=== PATIENT | male | born 1970 | race Caucasian/White ===

== ENCOUNTER 2017-01-02 11:32 | Emergency (ER) | payer MEDICAID ==
--- NOTE | 2017-01-02 11:43 | Emergency Department Record ---
History of Present Illness - General Chief Complaint: Shortness of breath Stated Complaint: ZBIGNIEW/ASTHMA RELATED Time Seen by Provider: 01/02/17 11:37 Source: Patient Mode of Arrival: Ambulatory Limitations: No limitations - History of Present Illness Initial Comments: 46 yo male presents wheezing that started this morning. No chest pain. He has a history of asthma. [place] and did [place] realize his inhaler is empty. He has mild congestion and drainage. No fevers or chills. He has life long asthma. No other recent medical issues and he has been healthy. MD Complaint: "Asthma attack" -: Hour(s) Severity: Moderate Consistency: Constant Improves With: Nothing Worsens With: Nothing Known History Of: Asthma Context: Allergen exposure Associated Symptoms: Denies other symptoms Treatments Prior to Arrival: None (empty inhaler at home) - Related Data Home Oxygen Therapy: No Previous Rx's Medication Instructions Recorded Albuterol Sulfate [Proair Hfa] 1 - 2 puff IH .EVERY 4-6 HOURS PRN 01/02/17 #1 inhaler Beclomethasone Dipropionate [Qvar 8.7 gm IH BID #1 aer.w.adap 01/02/17 40Mcg/100 Actuat Inhaler] Prednisone [Prednisone 20Mg] 20 mg PO BID #10 tab 01/02/17 Allergies Allergy/AdvReac Type Severity Reaction Status Date / Time No Known Drug Allergies Allergy Verified 01/02/17 11:43 Review of Systems Constitutional: Denies: Chills, Fever, Malaise, Weakness Eyes: Denies: Eye discharge, Eye pain, Photophobia ENT: Reports: Congestion. Denies: Ear pain, Epistaxis, Throat pain Respiratory: Reports: Cough, Dyspnea, Wheezes. Denies: Hemoptysis, Stridor Cardiovascular: Denies: Chest pain, Palpitations, Syncope Endocrine: Denies: Fatigue, Polydipsia, Polyuria Gastrointestinal: Denies: Abdominal pain, Diarrhea, Nausea, Vomiting Genitourinary: Denies: Hematuria, Urgency Musculoskeletal: Denies: Arthralgia, Back pain, Joint swelling, Myalgia Skin: Denies: Bruising, Change in color, Rash Neurological: Denies: Headache, Numbness, Weakness Psychiatric: Denies: Anxiety Hematological/Lymphatic: Denies: Easy bleeding, Easy bruising, Swollen glands Physical Exam - General General Appearance: Alert, Oriented x3, Cooperative, No acute distress, Other ( Calm, no conversational dyspnea) Limitations: No limitations - Head Head exam: Normal inspection - Eye Eye exam: Normal appearance, PERRL - ENT ENT exam: Normal exam Ear exam: Normal external inspection Nasal Exam: Normal inspection Mouth exam: Normal external inspection - Neck Neck exam: Normal inspection, Full ROM. negative: Tenderness - Respiratory Respiratory exam: Decreased breath sounds, Prolonged expiratory (mild), Wheezes. negative: Normal lung sounds bilaterally, Accessory muscle use - Cardiovascular Cardiovascular Exam: Regular rate, Normal rhythm, Normal heart sounds - GI/Abdominal GI/Abdominal exam: Soft. negative: Tenderness - Rectal Rectal exam: Deferred - exam: Deferred - Extremities Extremities exam: Normal inspection. negative: Pedal edema - Neurological Neurological exam: Alert, Normal gait, Oriented X3 - Psychiatric Psychiatric exam: Normal affect, Normal mood - Skin Skin exam: Dry, Intact, Normal color, Warm Course - Reevaluation(s) Reevaluation #1: Vitals reviewed No hypoxia RT is room for a treatment. 01/02/17 11:45 Reevaluation #2: Clear lungs after the RT treatment Much improved Prescriptions provided and sent 01/02/17 12:03 Disposition Disposition: Discharge Clinical Impression: Asthma exacerbation Disposition: Home, Self-Care Condition: (1) Good Instructions: Asthma (ED) Additional Instructions: Follow up with your doctor first of the week Return if worse, fever, chills, pain, or discolored sputum Prescriptions: Albuterol Sulfate [Proair Hfa] 1 - 2 puff IH .EVERY 4-6 HOURS PRN #1 inhaler PRN Reason: Difficulty In Breathing Beclomethasone Dipropionate [Qvar 40Mcg/100 Actuat Inhaler] 8.7 gm IH BID #1 aer.w.adap Prednisone [Prednisone 20Mg] 20 mg PO BID #10 tab Forms: Patient Portal Access Time of Disposition: 12:03 Quality - Quality Measures Quality Measures: N/A - Blood Pressure Screening Blood Pressure Classification: Hypertensive Reading Systolic Measurement: 142 Diastolic Measurement: 91 Screening for High Blood Pressure: < Pre-Hypertensive BP, F/U Documented > [ [id number]] Pre-Hypertensive Follow-up Interventions: Referral to alternative/primary care provider.
[2017-01-02] MEDS: IPRATROPIUM/ALBUTEROL (0.5MG/3MG) NEB INH ONE (11:45)
[2017-01-02] MEDS: PREDNISONE 20 MG TAB PO ONE (11:46)
== END 2017-01-02 12:18 | disposition home or self-care (01) ==
LOC: ER 11:32
DX: J45.901 Unspecified asthma with (acute) exacerbation (principal)
CPT/HCPCS: 99283 ×2; 94640; J7512